=== PATIENT | male | born 1990 | race American Indian/Alaskan Native ===

== ENCOUNTER 2021-12-26 06:30 | Emergency (ER) | payer SELFPAY ==
[2021-12-26 06:43] VITALS: BP 119/76
[2021-12-26] MEDS ORDERED: ONDANSETRON 4 MG/2 ML INJ IV ONE (08:53)
[2021-12-26] MEDS ORDERED: SODIUM CHLORIDE 0.9% 1000 ML 1,000 ML IV ONE ×2 (08:53→11:26)
[2021-12-26] MEDS ORDERED: MORPHINE 4 MG/1 ML INJ IV ONE ×2 (08:53→11:26)
[2021-12-26] MEDS ORDERED: KETOROLAC 30 MG/1 ML INJ IV ONE (08:54)
--- NOTE | 2021-12-26 09:22 | Cat Scan Report ---
CT head/brain wo con INDICATION: headache. TECHNIQUE: All CT scans at this location are performed using CT dose reduction for ALARA by means of automated e xposure control. COMPARISON: None available. FINDINGS: There is no evidence of hemorrhage, hydrocephalus, brain edema, or mass effect/mass lesion. There is overall normal brain formation and brain volume for the patient's age. Ventricular and cisternal/sulc al size is normal for age. The included paranasal sinuses and mastoid air cells are clear. The orbits appear unremarkable. IMPRESSION: 1. No acute findings. Signer Name: Rob Ennis MD Signed: 12/26/2021 9:18 AM Workstation Name: [id number]
[2021-12-26 10:21] LABS: Basophils % (Auto) 0.2 % (0.0-1.8); Hematocrit 46.9 % (35.5-45.6); Hemoglobin 15.8 gm/dl (11.8-15.2); Lymphocytes # (Auto) 0.9 K/mm3 (1.2-5.4); Lymphocytes % (Auto) 7.8 % (13.4-35.0); Mean Corpuscular HGB Conc 34 % (32-34); Mean Corpuscular Volume 94 fl (84-94); Monocytes # (Auto) 0.8 K/mm3 (0.0-0.8); Monocytes % (Auto) 7.7 % (0.0-7.3); Platelet Count 350 K/mm3 (140-440); Red Blood Count 4.97 M/mm3 (3.65-5.03); Red Cell Distribution Width 12.5 % (13.2-15.2)
[2021-12-26 10:36] LABS: Alanine Aminotransferase 23 units/L (7-56); Albumin 4.8 g/dL (3.9-5); BUN/Creatinine Ratio 10; Blood Urea Nitrogen 11 mg/dL (9-20); Calcium 9.5 mg/dL (8.4-10.2); Hemolysis Index 15
[2021-12-26 10:54] LABS: INR 1.03 (0.87-1.13)
[2021-12-26 10:55] LABS: Partial Thromboplastin Time 34.8 Sec. (24.2-36.6)
--- NOTE | 2021-12-26 11:25 | Emergency Department Report ---
ED General Adult HPI - General Chief complaint: Headache Stated complaint: HEADACHE/NECK STIFFNESS PUI?: No Time Seen by Provider: 12/26/21 08:32 Source: patient Mode of arrival: Ambulatory Limitations: No Limitations - History of Present Illness Initial comments: 31 yo comes to ER with severe headache. no fever. no chills. no trauma. no n/v. pos light sensitivity. He is co he has meningitis - this is how he felt in the past neuro intact -: Sudden, hour(s) Location: head Severity scale (0 -10): 10 Improves with: none Worsens with: none Associated Symptoms: denies other symptoms. denies: confusion, chest pain, cough, diaphoresis, fever/chills, headaches, loss of appetite, malaise, nausea/vomiting, rash, seizure, shortness of breath, syncope, other Treatments Prior to Arrival: none - Related Data Previous Rx's Medication Instructions Recorded Last Taken Type Butalb/Acetaminophen/Caffeine 1 cap PO Q8HR PRN #10 cap 12/26/21 Unknown Rx [Fioricet 50-300-40 mg CAP] Allergies Allergy/AdvReac Type Severity Reaction Status Date / Time No Known Allergies Allergy Unverified 12/26/21 06:42 ED Review of Systems ROS: Stated complaint: HEADACHE/NECK STIFFNESS Other details as noted in HPI Comment: All other systems reviewed and negative ED Past Medical Hx - Past Medical History Previous Medical History?: Yes Additional medical history: reports he had meningitis - Surgical History Past Surgical History?: No - Family History Family history: no significant - Social History Smoking Status: Current Every Day Smoker Substance Use Type: Alcohol - Medications Home Medications: Home Medications Medication Instructions Recorded Confirmed Last Taken Type Butalb/Acetaminophen/Caffeine 1 cap PO Q8HR PRN #10 cap 12/26/21 Unknown Rx [Fioricet 50-300-40 mg CAP] ED Physical Exam - General Limitations: No Limitations General appearance: alert, in no apparent distress - Head Head exam: Present: atraumatic, normocephalic - Eye Eye exam: Present: normal appearance - ENT ENT exam: Present: mucous membranes moist - Neck Neck exam: Present: normal inspection - Respiratory Respiratory exam: Present: normal lung sounds bilaterally. Absent: respiratory distress - Cardiovascular Cardiovascular Exam: Present: regular rate, normal rhythm. Absent: systolic murmur, diastolic murmur, rubs, gallop - GI/Abdominal GI/Abdominal exam: Present: soft, normal bowel sounds - Rectal Rectal exam: Present: deferred - Extremities Exam Extremities exam: Present: normal inspection - Back Exam Back exam: Present: normal inspection - Neurological Exam Neurological exam: Present: alert, oriented X3 - Expanded Neurological Exam Expanded Patient oriented to: Present: person, time Speech: Present: fluid speech Cranial nerves: EOM's Intact: Normal, Gag Reflex: Normal, Tongue Deviation: No rmal, Nystagmus: Normal, Facial Sensation: Normal Cerebellar function: Finger to Nose: Normal, Heel to Puentes: Normal, Romberg: Normal Upper motor neuron: Morris Neglect: Normal Motor strength exam: RUE: 5, LUE: 5, RLE: 5, LLE: 5 Best Eye Response ([place]): (4) open spontaneously Best Motor Response ([place]): (6) obeys commands Best Verbal Response ([place]): (5) oriented [place] Total: 15 - Psychiatric Psychiatric exam: Present: normal affect, normal mood - Skin Skin exam: Present: warm, dry, intact, normal color. Absent: rash ED Course Vital Signs 12/26/21 06:40 Temperature 98.5 F Pulse Rate 77 Respiratory 16 Rate Blood Pressure 119/76 O2 Sat by Pulse 97 Oximetry ED Medical Decision Making - Lab Data Result diagrams: 12/26/21 09:35 12/26/21 09:35 - Radiology Data Radiology results: report reviewed, image reviewed [facility] - Medical Decision Making Lab Results 12/26/21 12/26/21 12/26/21 Range/Units 09:35 09:35 09:35 WBC 11.0 (4.5-11.0) K/mm3 RBC 4.97 (3.65-5.03) M/mm3 Hgb 15.8 H (11.8-15.2) gm/dl Hct 46.9 H (35.5-45.6) % MCV 94 (84-94) fl MCH 32 (28-32) pg MCHC 34 (32-34) % RDW 12.5 L (13.2-15.2) % Plt Count 350 (140-440) K/mm3 Lymph % (Auto) 7.8 L (13.4-35.0) % [place] % (Auto) 7.7 H (0.0-7.3) % Eos % (Auto) 0.0 (0.0-4.3) % Baso % (Auto) 0.2 (0.0-1.8) % Lymph # (Auto) 0.9 L (1.2-5.4) K/mm3 [place] # (Auto) 0.8 (0.0-0.8) K/mm3 Eos # (Auto) 0.0 (0.0-0.4) K/mm3 Baso # (Auto) 0.0 (0.0-0.1) K/mm3 Seg Neutrophils % 84.3 H (40.0-70.0) % Seg Neutrophils # 9.2 H (1.8-7.7) K/mm3 PT 14.7 (12.2-14.9) Sec. INR 1.03 (0.87-1.13) APTT 34.8 (24.2-36.6) Sec. Sodium 136 L (137-145) mmol/L Potassium 4.5 (3.6-5.0) mmol/L Chloride 98.9 (98-107) mmol/L Carbon Dioxide 26 (22-30) mmol/L Anion Gap 16 mmol/L BUN 11 (9-20) mg/dL Creatinine 1.1 (0.8-1.3) mg/dL Estimated GFR > 60 ml/min BUN/Creatinine Ratio 10 % Glucose 96 (75-100) mg/dL Calcium 9.5 (8.4-10.2) mg/dL Total Bilirubin 0.40 (0.1-1.2) mg/dL AST 19 (5-40) units/L ALT 23 (7-56) units/L Alkaline Phosphatase 69 (35-129) units/L Total Protein 7.0 (6.3-8.2) g/dL Albumin 4.8 (3.9-5) g/dL Albumin/Globulin Ratio 2.2 % Vital Signs 12/26/21 06:40 Temperature 98.5 F Pulse Rate 77 Respiratory 16 Rate Blood Pressure 119/76 O2 Sat by Pulse 97 Oximetry LABS NOTED WBC NORMAL VSS NO FEVER NO CHILLS NO RECENT URI WORKS FOR [employer] NO TRAUMA USED TO WORK IN DRUG [facility] NO MENINGEAL SYMPTOMS NO NV WHILE IN THE ER AMBULATORY TAKING PO CT NORMAL NEURO INTACT 1L NS AND MEDICATED FOR PAIN ON ARRIVAL TO ER. PT THEN ASKED FOR MORE NS AND MORE PAIN MEDS THE MOTRIN AND TYLENOL AND EXEDERINE HE HAS DOES NOT HELP HE MEDICATED AGAIN FOR PAIN A THIRD TIME ALTHOUGH ASLEEP ON PROVIDER ARRIVAL HE ASKED FOR PAIN MEDS WE DISCUSSED USE OF PAIN MEDS ETC IN THE CONTEXT OF HIS PRIOR JOB HE THEN STATES IF YOU SEND ME HOME WITH PAIN I'LL JUST COME RIGHT BACK GIRLFRIEND LEFT THE ROOM PT TAKING PO 1530 ON DC PT IS TAKING PO AMBULATORY HAS NO MENINGEAL SYMPTOMS VSS DC HOME WITH DC PLAN OF CARE INCLUDING DIET, MEDS, ACTIVITY AND FOLLOW UP. HES BEEN GIVEN REFERRAL TO PCP AND NEURO. HE HAD GIRLFRIEND VERBALIZE UNDERSTANDING OF PLAN OF CARE. - Differential Diagnosis migraine/cluster rosario/intracranial process/infection Critical care attestation.: If time is entered above; I have spent that time in minutes in the direct care of this critically ill patient, excluding procedure time. ED Disposition Clinical Impression: Headache Qualifiers: Headache type: unspecified Headache chronicity pattern: acute headache Disposition: 01 HOME / SELF CARE / HOMELESS Is pt being admited?: No Does the pt Need Aspirin: No Condition: Stable Instructions: General Headache Without Cause Additional Instructions: stay well hydrated motrin or tylenol for pain diet and activity as tolerated follow up with neuro as instructed as well as pcp referrals below Prescriptions: Butalb/Acetaminophen/Caffeine [Fioricet 50-300-40 mg CAP] 1 cap PO Q8HR PRN #10 cap PRN Reason: Headache Referrals: OKSANA BELL MD [Staff Physician] - 3-5 Days NATALIIA FTIZPATRICK MD [Staff Physician] - 3-5 Days Forms: Work/School Release Form(ED) Time of Disposition: 14:34
[2021-12-26] MEDS ORDERED: HYDROcodone/ACETAMINOPHEN 5-325 MG TAB PO ONE (14:31)
[2021-12-26 15:21] LABS: Color,Urine Yellow (Yellow)
[2021-12-26 15:28] LABS: Hyaline Casts,Urine 1 /LPF; Mucus,Urine 1+ /HPF
== END 2021-12-26 15:00 | disposition home or self-care (01) ==
LOC: ED 06:30
DX: R51.9 Headache, unspecified (principal); F17.200 Nicotine dependence, unspecified, uncomplicated; R79.1 Abnormal coagulation profile; Z72.89 Other problems related to lifestyle; Z79.899 Other long term (current) drug therapy
CPT/HCPCS: 36415; 70450; 80053; 81001; 85025; 85610; 85730; 96361; 96374; 96375; 96376; 99284; J1885; J2270; J2405; J7030